=== PATIENT | male | born 1960 | race Caucasian/White ===

== ENCOUNTER 2022-09-30 13:25 | Outpatient (OUT) | payer BC, SELFPAY | END 2022-09-30 13:26 | disposition home or self-care (01) | LOC: PST 13:25 | PROVIDERS: Visit Provider Surgery | DX: Z01.818 Encounter for other preprocedural examination (principal); Z86.010 Personal history of colon polyps ==

== ENCOUNTER 2022-10-08 07:49 | Day surgery (SDC) | payer BC, SELFPAY ==
--- NOTE | 2022-08-08 | OP_ITS ---
OPERATION DATE: ??10/08/2022 PREOPERATIVE DIAGNOSIS:? Personal history of colon polyps. POSTOPERATIVE DIAGNOSIS:? Sigmoid polyps x5. PROCEDURE:? Colonoscopy to cecum with cold snare polypectomy x5. SURGEON:? Lincoln Steinberg M.D. ANESTHESIA:? Monitored anesthesia care. ESTIMATED BLOOD LOSS:? Less than 1 mL. INDICATIONS AND CONSENT:? Patient is a 62-year-old male with personal history of colon polyps.? Indications, risks, benefits, alternatives of proceeding with colonoscopy were explained extensively to the patient, including the risks of bleeding, colon perforation or anesthetic complications.? All of his questions were answered.? Informed consent was obtained. PROCEDURE:? Patient brought to the operating room, placed in the left lateral decubitus position.? Monitored anesthesia care was provided.? Rectal exam was performed which revealed no masses or blood.? The scope was inserted into the anal canal.? Under direct visualization was advanced.? With the aid of abdominal compression, it was advanced to the cecum where cecal markings were clearly identified.? There was noted to be a good prep.? Upon withdrawal of the scope, mucosal surfaces were carefully examined.? There were no mass lesions or inflammatory changes.? There were rare sigmoid diverticula without inflammatory changes or scarring.? Within the proximal sigmoid, there was noted to be a 5 mm sessile polyp that was removed with cold snare with good hemostasis.? In the distal sigmoid, there were noted to be four sessile polyps, ranging in size from 3-5 mm.? These were all removed with cold snare with good hemostasis.? The scope was retroflexed in the anal canal.? There were some prominent rectal veins.? No significant hemorrhoidal disease.? Scope was then withdrawn.? Patient tolerated procedure well, was sent to recovery room in good condition. Follow up colonoscopy will likely be in 3-5 years, depending on pathology results. CC:? Patient?s family physician ROBERTO
[2022-10-08 08:08] VITALS: PULSE 98; RESP 20; TEMP 36.1; O2SAT 97; BMI 39.1
[2022-10-08 08:13] LABS: Glucometer 165 mg/dL (74-106)
[2022-10-08] MEDS: LACTATED RINGER'S SOLUTION 1,000 ML 50 ML IV (08:17)
[2022-10-08 09:45] VITALS: BP 102/62; PULSE 70; RESP 16; TEMP 36.1; O2SAT 93
[2022-10-08 10:00] VITALS: BP 110/56; PULSE 64; RESP 16; O2SAT 97
[2022-10-08 10:15] VITALS: BP 110/68; PULSE 65; RESP 18; O2SAT 96
== END 2022-10-08 10:15 | disposition home or self-care (01) ==
PROVIDERS: PCP Nurse Practitioner; Visit Provider Surgery
PROC: (CPT 45385; principal; 2022-10-08 08:55)
DX: K63.5 Polyp of colon (principal); Z86.010 Personal history of colon polyps; E11.9 Type 2 diabetes mellitus without complications; I10 Essential (primary) hypertension; E78.00 Pure hypercholesterolemia, unspecified; E66.01 Morbid (severe) obesity due to excess calories; F17.210 Nicotine dependence, cigarettes, uncomplicated; Z79.84 Long term (current) use of oral hypoglycemic drugs; Z68.41 Body mass index [BMI] 40.0-44.9, adult
CPT/HCPCS: 45385; 36415; 36416; 82948; 88305; J2704

== ENCOUNTER 2022-12-11 21:28 | Emergency (ER) | payer BC, SELFPAY ==
[2022-12-11 21:32] VITALS: BP 145/76; PULSE 86; RESP 18; TEMP 37; O2SAT 98; BMI 39.3
--- NOTE | 2022-12-11 21:57 | ED.GENADUL1 ---
HPI - General Adult General Chief complaint: GI Bleed Stated complaint: Rectal Bleed Time Seen by Provider: 12/11/22 21:36 Source: patient Mode of arrival: walk-in Limitations: no limitations History of Present Illness HPI narrative: patient had a painful hemorrhoid that popped up about 5 days ago. Today he felt it pop and he passed some clots and had rectal bleeding. He bled into his pants. He applied some tissue paper tonight as he came tot [facility] and now the bleeding has stopped. He has never seen anyone about his hemorrhoids but Dr Steinberg did his colonoscopy recently. No abdominal pain, dizziness, chest pain, syncope or near syncope. Related Data Home Medications Medication Instructions Recorded Confirmed fenofibrate nanocrystallized 145 145 mg PO DAILY 09/30/22 10/08/22 mg tablet (Tricor) lisinopril 10 mg tablet 10 mg PO DAILY 09/30/22 10/08/22 metformin 500 mg tablet 500 mg PO BID 09/30/22 10/08/22 metoprolol tartrate 100 mg tablet 100 mg PO DAILY 09/30/22 10/08/22 sildenafil 50 mg tablet 50 mg PO DAILY PRN sexual activity 09/30/22 10/08/22 Allergies Allergy/AdvReac Type Severity Reaction Status Date / Time No Known Drug Allergies Allergy Verified 12/11/22 21:37 [facility] Medical History (Updated 12/11/22 @ 22:02 by Alan Selby) Colon polyps ?K63.5 - Polyp of colon (ICD-10) Surgical History (Updated 09/30/22 @ 12:48 by Tracee Mcrae) H/O cardiac catheterization ?Z98.890 - Other specified postprocedural states (ICD-10) H/O colonoscopy ?Z98.890 - Other specified postprocedural states (ICD-10) Family History (Updated 09/30/22 @ 12:49 by Tracee Mcrae) Other Family history of diabetes mellitus Family history of myocardial infarction Social History (Updated 09/30/22 @ 12:59 by Tracee Mcrae) Within the past year, how often did you have a drink containing alcohol: monthly or less Smoking status: Current every day smoker Non-prescribed substance use: denies use Previous occupational history: equipment engineering technician Highest level of school completed/degree received: Associate degree: academic program Exam Narrative Exam Narrative: Nurses notes and vital signs reviewed and patient is not hypoxic. afebrile General: Well-appearing and in no apparent distress. Skin: Warm, dry, no pallor noted. No rash to buttocks or scrotum. Head: Normocephalic, atraumatic. Eye: Pupils are equal, round and EOMI. No scleral icterus. Cardiovascular: Normal peripheral perfusion. Respiratory: No accessory muscle use or respiratory distress. Rectal: deflated external hemorrhoid with a blood clot protruding that I was able to remove. No active bleeding. No tenderness. Neurological: A&O x4. No cranial nerve dysfunction observed. No truncal ataxia. Moves all extremities. Sensation intact. Psychiatric: Cooperative and interactive. Normal mood and affect. Constitutional Vital Signs, click to edit/add: Last Vital Signs Temp 98.6 F 12/11/22 21:32 Pulse 86 12/11/22 21:32 Resp 18 12/11/22 21:32 BP 145/76 H 12/11/22 21:32 Pulse Ox 98 12/11/22 21:32 O2 Del Method Room Air 12/11/22 21:32 Course Vital Signs Vital signs: Vital Signs Temperature 98.6 F 12/11/22 21:32 Pulse Rate 86 12/11/22 21:32 Respiratory Rate 18 12/11/22 21:32 Blood Pressure 145/76 H 12/11/22 21:32 Pulse Oximetry 98 12/11/22 21:32 Oxygen Delivery Method Room Air 12/11/22 21:32 Temperature 98.6 F 12/11/22 21:32 Pulse Rate 86 12/11/22 21:32 Respiratory Rate 18 12/11/22 21:32 Blood Pressure 145/76 H 12/11/22 21:32 Pulse Oximetry 98 12/11/22 21:32 Oxygen Delivery Method Room Air 12/11/22 21:32 Medical Decision Making MDM Narrative Medical decision making narrative: patient had a thrombosed hemorrhoid which spontaneously opened, bled and clot passed. He has no active bleeding. Normal HR and no hypotension. No symptoms requiring additional intervention or evaluation at this time. Patient referred to Dr Steinberg in case he has new or worsening symptoms regarding his hemorrhoid. Discharge Plan Discharge Chief Complaint: GI Bleed Clinical Impression: External hemorrhoid Patient Disposition: Home, Self-Care Time of Disposition Decision: 22:02 Prescriptions / Home Meds: No Action lisinopril 10 mg tablet 10 mg PO DAILY metformin 500 mg tablet 500 mg PO BID metoprolol tartrate 100 mg tablet 100 mg PO DAILY sildenafil 50 mg tablet 50 mg PO DAILY PRN (Reason: sexual activity) Rx Instructions: administer 30 minutes to 4 hours before activity fenofibrate nanocrystallized [Tricor] 145 mg tablet 145 mg PO DAILY Instructions: Hemorrhoids (ED) Stand Alone Forms: Portal Instructions Referrals: Lincoln Steinberg MD [Physician] - As needed
== END 2022-12-11 22:25 | disposition home or self-care (01) ==
PROVIDERS: Emergency Provider Emergency Medicine; PCP Nurse Practitioner
DX: K64.4 Residual hemorrhoidal skin tags (principal); F17.210 Nicotine dependence, cigarettes, uncomplicated
CPT/HCPCS: 99281